=== PATIENT | female | born 1955 | race Caucasian/White ===

== ENCOUNTER 2018-02-13 11:25 | Inpatient (IN) | payer OTHER, SELFPAY ==
[~2018-02-13] VITALS: Ht 157.5 cm; Wt 61.8 kg
[2018-02-13 11:56] LABS: MEAN CORPUSCULAR HEMOGLOBIN 31.1 pg (27.0-34.8); MEAN CORPUSCULAR HGB CONC 34.5 g/dL (32.4-35.8); MEAN CORPUSCULAR VOLUME 90.2 fL (80-100); MEAN PLATELET VOLUME 8.7 fL (7.4-10.4); PLATELET COUNT 505 x10^3/uL (130-400); RED BLOOD COUNT 4.14 x10^6/uL (3.82-5.3); RED CELL DISTRIBUTION WIDTH 14.3 % (9.6-15.2)
[2018-02-13] MEDS ORDERED: LORazepam 2 MG/ML, 1ML ONE (11:56)
[2018-02-13] MEDS ORDERED: LORazepam 2 MG/ML, 1ML IVPush ONE (12:00)
[2018-02-13 12:08] LABS: ALBUMIN 3.5 g/dL (3.4-5.0); ANION GAP 14 mmol/L (5-15); CALCIUM 9.2 mg/dL (8.5-10.1); CHLORIDE 95 mmol/L (98-107)
[2018-02-13 12:12] LABS: D-DIMER 0.69 ug/mlFEU (0.00-0.52); INTERNATIONAL NORMALIZED RATIO 0.99 (0.93-1.1); PROTHROMBIN TIME 10.5 Seconds (9.6-11.5)
[2018-02-13 12:13] LABS: ALANINE AMINOTRANSFERASE 18 U/L (12-78); ALKALINE PHOSPHATASE 114 U/L (45-117); BILIRUBIN,TOTAL 0.7 mg/dL (0.2-1.0); CREATININE 0.98 mg/dL (0.55-1.02); TOTAL PROTEIN 8.1 g/dL (6.4-8.2); TROPONIN I < 0.015 ng/mL (0.000-0.045)
[2018-02-13 12:14] LABS: MD YES
[2018-02-13 12:15] LABS: <RBC MORPHOLOGY> NORMAL; BANDS%(MANUAL) 2 % (0-7); LYMPH#(MANUAL) 5.94 x10^3/uL (1-3.4); LYMPHS% (MANUAL) 30 % (22-44); MONOS% (MANUAL) 2 % (2-9); SEG#(MANUAL) 13.07 x10^3/uL (1.8-6.8); SEGS% (MANUAL) 66 % (42-75)
[2018-02-13 12:16] LABS: <PLATELET ESTIMATE> INCREASED; <PLT MORPHOLOGY> NORMAL PLT MORPH
[2018-02-13] MEDS ORDERED: POTASSIUM CHLORIDE 20 MEQ TAB.ER.PRT ONE (12:22)
[2018-02-13] MEDS ORDERED: NS + 40MEQ KCL 1,000 ML IV ONE (12:23)
[2018-02-13] MEDS ORDERED: POTASSIUM CHLORIDE 20 MEQ TAB.ER.PRT PO ONE ×2 (12:30→15:00)
[2018-02-13] MEDS: POTASSIUM CHLORIDE 40 MEQ in SODIUM CHLORIDE 0.9% 500 ML IV ONE ×2 (12:30→12:34)
[2018-02-13] MEDS ORDERED: DIPHENHYDRAMINE 50 MG/ML, 1ML ONE (12:56)
[2018-02-13] MEDS ORDERED: DIPHENHYDRAMINE 50 MG/ML, 1ML IVPush ONE (13:00)
[2018-02-13] MEDS ORDERED: OMNIPAQUE 350 MG/ML, 100ML BOTTLE ONE (13:26)
[2018-02-13] MEDS ORDERED: ASPI81TA45 PO (13:42)
[2018-02-13] MEDS ORDERED: SENN-88 PO (13:42)
[2018-02-13] MEDS ORDERED: ATOR40TA78 PO (13:42)
[2018-02-13] MEDS ORDERED: FURO40TA6 PO (13:42)
[2018-02-13] MEDS ORDERED: CARV6.252 PO (13:42)
[2018-02-13] MEDS ORDERED: LINA5TAB PO (13:42)
[2018-02-13] MEDS ORDERED: METF500T17 PO (13:42)
[2018-02-13] MEDS ORDERED: POTA90TA2 PO (13:42)
[2018-02-13] MEDS ORDERED: HYDR25TA6 PO (13:42)
[2018-02-13] MEDS ORDERED: LABETALOL 5MG/ML, 20ML IVPush PRN (14:00)
[2018-02-13] MEDS ORDERED: AZITHROMYCIN 500 MG in SODIUM CHLORIDE 0.9% 250 ML IV ONE (14:00)
[2018-02-13] MEDS ORDERED: CEFTRIAXONE PMX 1GM/50ML 50 ML IV ONE (14:00)
[2018-02-13] MEDS ORDERED: SODIUM CHLORIDE 0.9% 1,000 ML IV SCH (14:00)
[2018-02-13] MEDS ORDERED: ONDANSETRON ODT 4 MG PO PRN (14:00)
[2018-02-13] MEDS ORDERED: ONDANSETRON 2MG/ML, 2ML IVPush PRN (14:00)
[2018-02-13] MEDS ORDERED: POLYETHYLENE GLYCOL 17 GM PACKET PO PRN (14:00)
[2018-02-13 14:52] VITALS: BP_SYST 101; BP_SYST 85; BP_DIAS 52; BP_DIAS 53
[2018-02-13] MEDS ORDERED: NS + 20MEQ KCL 1,000 ML IV SCH (15:00)
[2018-02-13] MEDS: DOXYCYCLINE 100MG TABLET PO SCH ×2 (15:52→20:08)
[2018-02-13] MEDS: CEFTRIAXONE PMX 1GM/50ML 50 ML IV SCH (15:52)
[2018-02-13] MEDS: GUAIFENESIN 200 MG TABLET PO SCH ×2 (16:00→20:08)
[2018-02-13 17:40] LABS: ALBUMIN 3.1 g/dL (3.4-5.0); ANION GAP 8 mmol/L (5-15); CALCIUM 9.2 mg/dL (8.5-10.1); CHLORIDE 96 mmol/L (98-107); CREATININE 1.03 mg/dL (0.55-1.02)
[2018-02-13 18:42] VITALS: BP 101/67
[2018-02-13 19:43] LABS: ANION GAP 8 mmol/L (5-15); CALCIUM 8.7 mg/dL (8.5-10.1); CHLORIDE 100 mmol/L (98-107); CREATININE 1.33 mg/dL (0.55-1.02)
[2018-02-13] MEDS: ATORVASTATIN 80 MG TABLET PO SCH (20:08)
[2018-02-13] MEDS: CARVEDILOL 6.25 MG TABLET PO SCH (20:08)
[2018-02-14 01:52] VITALS: BP 101/66
[2018-02-14] MEDS: GUAIFENESIN 200 MG TABLET PO SCH ×4 (05:10→21:04)
[2018-02-14 05:40] LABS: BASOPHILS % (AUTO) 1 % (0-1); EOSINOPHILS # (AUTO) 0.12 x10^3/uL (0-0.4); EOSINOPHILS % (AUTO) 1 % (1-7); LYMPHOCYTES % (AUTO) 20 % (22-44); MD NO; MEAN CORPUSCULAR HEMOGLOBIN 30.6 pg (27.0-34.8); MEAN CORPUSCULAR HGB CONC 33.6 g/dL (32.4-35.8); MEAN CORPUSCULAR VOLUME 91.1 fL (80-100); MEAN PLATELET VOLUME 8.8 fL (7.4-10.4); MONOCYTES # (AUTO) 0.94 x10^3/uL (0.2-0.8); MONOCYTES % (AUTO) 6 % (2-9); NEUTROPHILS # (AUTO) 11.36 x10^3/uL (1.8-6.8); NEUTROPHILS % (AUTO) 73 % (42-75); PLATELET COUNT 456 x10^3/uL (130-400); RED CELL DISTRIBUTION WIDTH 14.5 % (9.6-15.2)
[2018-02-14 05:51] LABS: ALBUMIN 2.7 g/dL (3.4-5.0); CHLORIDE 104 mmol/L (98-107)
[2018-02-14 06:11] LABS: ALANINE AMINOTRANSFERASE 15 U/L (12-78); ALKALINE PHOSPHATASE 88 U/L (45-117); ANION GAP 10 mmol/L (5-15); BILIRUBIN,TOTAL 0.3 mg/dL (0.2-1.0); CALCIUM 8.2 mg/dL (8.5-10.1); CREATININE 0.92 mg/dL (0.55-1.02); TOTAL PROTEIN 6.7 g/dL (6.4-8.2)
[2018-02-14 07:39] LABS: TROPONIN I < 0.015 ng/mL (0.000-0.045)
[2018-02-14 08:33] VITALS: BP 103/67
[2018-02-14] MEDS ORDERED: POTASSIUM CHLORIDE 20 MEQ TAB.ER.PRT PO ONE ×2 (09:00→18:00)
[2018-02-14] MEDS: ASPIRIN 81 MG TABLET EC PO SCH (09:34)
[2018-02-14] MEDS: DOXYCYCLINE 100MG TABLET PO SCH ×2 (09:34→21:04)
[2018-02-14] MEDS: HYDROCHLOROTHIAZIDE 25 MG TABLET PO SCH (09:34)
[2018-02-14] MEDS: SENNA/DOCUSATE TABLET PO SCH (09:34)
[2018-02-14] MEDS: CARVEDILOL 6.25 MG TABLET PO SCH ×2 (09:34→21:05)
[2018-02-14 11:02] LABS: TROPONIN I < 0.015 ng/mL (0.000-0.045)
[2018-02-14] MEDS ORDERED: ENOXAPARIN 40 MG/0.4 ML SQ SCH (14:00)
[2018-02-14] MEDS: INSULIN LISPRO 100 UNITS/ML, PEN SQ-INSULIN SCH ×3 (14:04→21:00)
[2018-02-14 14:08] VITALS: BP 99/59
[2018-02-14] MEDS ORDERED: NS + 20MEQ KCL 1,000 ML IV ONE (15:00)
[2018-02-14] MEDS: CEFTRIAXONE PMX 1GM/50ML 50 ML IV SCH (15:35)
[2018-02-14 17:57] LABS: MICROSCOPIC NOT IND
[2018-02-14 17:58] LABS: CULTURE INDICATED? NO
[2018-02-14 19:46] VITALS: BP 121/74
[2018-02-14] MEDS: ATORVASTATIN 80 MG TABLET PO SCH (21:04)
[2018-02-15 01:40] VITALS: BP 93/52
[2018-02-15] MEDS: GUAIFENESIN 200 MG TABLET PO SCH ×2 (05:39→10:49)
[2018-02-15 06:29] LABS: MEAN CORPUSCULAR HEMOGLOBIN 30.6 pg (27.0-34.8); MEAN CORPUSCULAR HGB CONC 33.9 g/dL (32.4-35.8); MEAN CORPUSCULAR VOLUME 90.5 fL (80-100); MEAN PLATELET VOLUME 8.8 fL (7.4-10.4); PLATELET COUNT 461 x10^3/uL (130-400); RED BLOOD COUNT 3.72 x10^6/uL (3.82-5.3); RED CELL DISTRIBUTION WIDTH 15.1 % (9.6-15.2)
[2018-02-15 06:39] LABS: ALBUMIN 2.8 g/dL (3.4-5.0); ANION GAP 7 mmol/L (5-15); CALCIUM 8.6 mg/dL (8.5-10.1); CHLORIDE 108 mmol/L (98-107); CREATININE 0.92 mg/dL (0.55-1.02)
[2018-02-15 07:10] LABS: MD YES
[2018-02-15 07:40] LABS: LYMPH#(MANUAL) 5.27 x10^3/uL (1-3.4); LYMPHS% (MANUAL) 45 % (22-44); MONOS#(MANUAL) 1.29 x10^3/uL (0.3-2.7); MONOS% (MANUAL) 11 % (2-9); SEG#(MANUAL) 5.15 x10^3/uL (1.8-6.8); SEGS% (MANUAL) 44 % (42-75)
[2018-02-15 07:41] LABS: <PLATELET ESTIMATE> INCREASED; <PLT MORPHOLOGY> NORMAL PLT MORPH; <RBC MORPHOLOGY> NORMAL
[2018-02-15 07:44] VITALS: BP 106/52
[2018-02-15] MEDS: SENNA/DOCUSATE TABLET PO SCH (08:13)
[2018-02-15] MEDS: ASPIRIN 81 MG TABLET EC PO SCH (08:13)
[2018-02-15] MEDS: DOXYCYCLINE 100MG TABLET PO SCH (08:13)
[2018-02-15] MEDS: HYDROCHLOROTHIAZIDE 25 MG TABLET PO SCH (08:13)
[2018-02-15] MEDS: CARVEDILOL 6.25 MG TABLET PO SCH (08:13)
[2018-02-15 08:45] LABS: HEMOGLOBIN A1C 7.9 % (4.2-6.3)
[2018-02-15] MEDS: INSULIN LISPRO 100 UNITS/ML, PEN SQ-INSULIN SCH ×2 (09:00→12:37)
[2018-02-15] MEDS ORDERED: CEFD300C37 PO ×2 (09:13)
[2018-02-15] MEDS ORDERED: DOXY100T PO ×2 (09:13)
[2018-02-15] MEDS ORDERED: CEFTRIAXONE PMX 1GM/50ML 50 ML IV SCH (09:30)
[2018-02-15] MEDS ORDERED: CEFDINIR 300 MG CAPSULE PO ONE (10:30)
== END 2018-02-15 11:54 | disposition home or self-care (01) | DRG 871 ==
LOC: ED 12:49 → EDIP 13:26 → 5SO 14:26 → DCLOUNGE 02-15 11:45
PROVIDERS: ADMIT Hospitalist; ATTEND Hospitalist
DX: A41.9 Sepsis, unspecified organism (principal); J18.9 Pneumonia, unspecified organism; E87.1 Hypo-osmolality and hyponatremia; Z79.82 Long term (current) use of aspirin; K21.9 Gastro-esophageal reflux disease without esophagitis; I10 Essential (primary) hypertension; I25.10 Atherosclerotic heart disease of native coronary artery without angina pectoris; F17.210 Nicotine dependence, cigarettes, uncomplicated; Z85.43 Personal history of malignant neoplasm of ovary; D44.6 Neoplasm of uncertain behavior of carotid body; E11.9 Type 2 diabetes mellitus without complications; E78.00 Pure hypercholesterolemia, unspecified; E78.5 Hyperlipidemia, unspecified; E87.6 Hypokalemia; I25.2 Old myocardial infarction; I35.8 Other nonrheumatic aortic valve disorders; Z66 Do not resuscitate; Z80.0 Family history of malignant neoplasm of digestive organs; Z80.3 Family history of malignant neoplasm of breast; Z80.6 Family history of leukemia; Z82.49 Family history of ischemic heart disease and other diseases of the circulatory system; Z83.3 Family history of diabetes mellitus; Z86.73 Personal history of transient ischemic attack (TIA), and cerebral infarction without residual deficits; Z90.81 Acquired absence of spleen; Z90.711 Acquired absence of uterus with remaining cervical stump
CPT/HCPCS: 36415; 71045; 71275; 80048; 80053; 81003; 82040; 82962; 83036; 83605; 83735; 84100; 84145; 84439; 84443; 84484; 85025; 85379; 85610; 85730; 87040; 87070; 87205; 93005; 93306; 96374; 96375; 99291; G0378; J0696; J1650; J3480; Q9967; J1200; J1815; J2060; J7040

== ENCOUNTER 2018-02-18 16:42 | Observation (INO) | payer OTHER ==
[~2018-02-18] VITALS: Ht 160 cm; Wt 62.9 kg
[~2018-02-18 16:42] MED LIST: ASPI81TA45 PO; ATOR40TA78 PO; CARV6.252 PO; CEFD300C37 PO; DOXY100T PO; FURO40TA6 PO; HYDR25TA6 PO; LINA5TAB PO; METF500T17 PO; POTA90TA2 PO; SENN-88 PO
--- NOTE | 2018-02-18 17:05 | NUR ---
PT PRESENTS TO ED WITH SIGNIFICANT CP AND ASSOCIATED BACK PAIN STARTING THIS MORNING AT 0000. RELIEF WITH DEEP BREATHING. CONNECTED TO ALL MONITORS. CURRENTLY TACHYCARDIC. KAVON TO BEDSIDE. AWAITING ORDERS.
[2018-02-18] MEDS ORDERED: METOPROLOL 1 MG/ML, 5ML ONE (17:12)
[2018-02-18] MEDS ORDERED: MORPHINE SULFATE 4 MG/ML, 1ML ONE (17:12)
[2018-02-18] MEDS ORDERED: ONDANSETRON 2MG/ML, 2ML ONE (17:12)
[2018-02-18] MEDS ORDERED: LORazepam 2 MG/ML, 1ML ONE (17:12)
[2018-02-18] MEDS ORDERED: METOPROLOL 1 MG/ML, 5ML IVPush ONE (17:30)
[2018-02-18] MEDS ORDERED: ONDANSETRON 2MG/ML, 2ML IVPush ONE (17:30)
[2018-02-18] MEDS ORDERED: MORPHINE SULFATE 4 MG/ML, 1ML IVPush PRN (17:30)
[2018-02-18] MEDS ORDERED: LORazepam 2 MG/ML, 1ML IVPush ONE (17:30)
--- NOTE | 2018-02-18 17:43 | NUR ---
IV PLACED, LABS DRAWN AND PT MEDICATED PER APR. PT REQUESTING HALF DOSE OF MORPHINE, INFORMED. AFTER MEDS HR DECREASED TO 108, ORDER TO HOLD LOPRESSOR AT THIS TIME. FAMILY AT BEDSIDE, CALL LIGHT WITHIN REACH. AWAITING TESTING AND RESULTS AT THIS TIME.
[2018-02-18 17:58] LABS: INTERNATIONAL NORMALIZED RATIO 0.97 (0.93-1.1); PROTHROMBIN TIME 10.3 Seconds (9.6-11.5)
[2018-02-18 18:02] LABS: ALBUMIN 3.9 g/dL (3.4-5.0); ANION GAP 15 mmol/L (5-15); CALCIUM 9.3 mg/dL (8.5-10.1); CHLORIDE 97 mmol/L (98-107)
--- NOTE | 2018-02-18 18:04 | NUR ---
PT RESTING IN BED WITH FAMILY AT BEDSIDE. PT REPORTING PAIN HAS DECREASED FROM 7/10 TO 3/10. HR AND BP HAVE DECREASED WELL. AWAITING TEST RESULTS AND DISPO AT THIS TIME.
--- NOTE | 2018-02-18 18:07 | NUR ---
PT RESTING IN BED WITH FAMILY AT BEDSIDE. PT STATES PAIN IS IMPROVING. HR IS DECREASING. ALL OTHER VSS.
[2018-02-18 18:09] LABS: ALANINE AMINOTRANSFERASE 20 U/L (12-78); ALKALINE PHOSPHATASE 114 U/L (45-117); BILIRUBIN,TOTAL 0.8 mg/dL (0.2-1.0); CREATININE 1.39 mg/dL (0.55-1.02); TOTAL PROTEIN 9.4 g/dL (6.4-8.2); TROPONIN I < 0.015 ng/mL (0.000-0.045)
[2018-02-18 18:24] LABS: MEAN CORPUSCULAR HEMOGLOBIN 30.2 pg (27.0-34.8); MEAN CORPUSCULAR HGB CONC 33.6 g/dL (32.4-35.8); MEAN CORPUSCULAR VOLUME 90.1 fL (80-100); MEAN PLATELET VOLUME 8.6 fL (7.4-10.4); PLATELET COUNT 679 x10^3/uL (130-400); RED BLOOD COUNT 4.67 x10^6/uL (3.82-5.3); RED CELL DISTRIBUTION WIDTH 14.4 % (9.6-15.2)
[2018-02-18 18:25] LABS: BASOPHILS # (AUTO) 0.12 x10^3/uL (0-0.1); BASOPHILS % (AUTO) 1 % (0-1); EOSINOPHILS # (AUTO) 0.26 x10^3/uL (0-0.4); EOSINOPHILS % (AUTO) 2 % (1-7); LYMPHOCYTES % (AUTO) 42 % (22-44); MD SCAN; MONOCYTES # (AUTO) 1.25 x10^3/uL (0.2-0.8); MONOCYTES % (AUTO) 7 % (2-9); NEUTROPHILS % (AUTO) 48 % (42-75)
--- NOTE | 2018-02-18 18:45 | NUR ---
MD AT BEDSIDE TO UPDATE PT AND FAMILY ON POC
[2018-02-18] MEDS ORDERED: CEFDINIR 300 MG CAPSULE PO SCH (19:00)
[2018-02-18] MEDS ORDERED: PHARMACOKINETIC CONSULTATION MC ONE (19:00)
[2018-02-18] MEDS ORDERED: DOXYCYCLINE 100MG TABLET PO ONE (19:00)
[2018-02-18] MEDS ORDERED: VANCOMYCIN PMX 1GM/200ML 200 ML IV ONE (19:00)
[2018-02-18] MEDS ORDERED: PIPERACILLIN/TAZO/PMX 4.5GM 100 ML IV ONE (19:00)
[2018-02-18] MEDS ORDERED: VANCOMYCIN PER PHARMACY MC PRN (19:00)
[2018-02-18] MEDS ORDERED: POTASSIUM CHLORIDE 10% 40 MEQ/30 ML UDC PO ONE (19:00)
[2018-02-18] MEDS ORDERED: CEFDINIR 300 MG CAPSULE ONE (19:06)
[2018-02-18] MEDS ORDERED: POTASSIUM CHLORIDE 20 MEQ PACKET ONE (19:08)
[2018-02-18] MEDS ORDERED: DOXYCYCLINE 100MG TABLET ONE (19:08)
--- NOTE | 2018-02-18 19:15 | NUR ---
MEDICATED PER APR. ADMIT MD AT BEDSIDE.
[2018-02-18] MEDS ORDERED: NS + 20MEQ KCL 1,000 ML IV SCH (19:32)
--- NOTE | 2018-02-18 19:38 | NUR ---
reprt to maggie in 405-1. ready for transport.
[2018-02-18] MEDS ORDERED: GLUCAGON 1 MG IM PRN (20:00)
[2018-02-18] MEDS ORDERED: ACETAMINOPHEN 325 MG TABLET PO PRN (20:00)
[2018-02-18] MEDS ORDERED: ONDANSETRON 2MG/ML, 2ML IVPush PRN (20:00)
[2018-02-18] MEDS ORDERED: DEXTROSE 50%, 50ML SYRINGE IVPush PRN (20:00)
[2018-02-18] MEDS ORDERED: MAGNESIUM SULFATE PMX 2GM/50ML 50 ML IV ONE (20:00)
[2018-02-18] MEDS ORDERED: ONDANSETRON ODT 4 MG PO PRN (20:00)
[2018-02-18] MEDS ORDERED: DEXTROSE 4 GM TAB.CHEW PO PRN (20:00)
[2018-02-18] MEDS ORDERED: POLYETHYLENE GLYCOL 17 GM PACKET PO PRN (20:00)
[2018-02-18] MEDS ORDERED: morphine SULFATE 10 MG/ML, 1ML IVPush PRN (20:00)
[2018-02-18 21:16] VITALS: BP 178/88
[2018-02-18 21:30] VITALS: BP 106/67
[2018-02-18] MEDS: DOXYCYCLINE 100MG TABLET PO SCH (21:32)
[2018-02-18] MEDS: SODIUM CHLORIDE FLUSH 10ML SYR IVF SCH (21:32)
[2018-02-18] MEDS: CARVEDILOL 6.25 MG TABLET PO SCH (21:32)
[2018-02-18] MEDS: ATORVASTATIN 40 MG TABLET PO SCH (21:32)
[2018-02-18] MEDS: CEFDINIR 300 MG CAPSULE PO SCH (21:32)
[2018-02-18] MEDS: POTASSIUM CHLORIDE 20 MEQ TAB.ER.PRT PO SCH (21:36)
[2018-02-18 22:46] VITALS: BP 193/71
[2018-02-19] MEDS ORDERED: NITR9CAP3 SL (01:06)
[2018-02-19] MEDS ORDERED: FURO20TA3 PO (01:06)
[2018-02-19 01:08] VITALS: BP 95/60
[2018-02-19 01:12] VITALS: BP 120/78
[2018-02-19] MEDS: SODIUM CHLORIDE 0.9% 1,000 ML IV SCH ×2 (06:27→20:02)
[2018-02-19 06:32] LABS: MEAN CORPUSCULAR HEMOGLOBIN 30.2 pg (27.0-34.8); MEAN CORPUSCULAR HGB CONC 33.4 g/dL (32.4-35.8); MEAN CORPUSCULAR VOLUME 90.3 fL (80-100); MEAN PLATELET VOLUME 8.3 fL (7.4-10.4); PLATELET COUNT 609 x10^3/uL (130-400); RED BLOOD COUNT 4.02 x10^6/uL (3.82-5.3); RED CELL DISTRIBUTION WIDTH 14.9 % (9.6-15.2)
[2018-02-19 06:35] LABS: ANION GAP 9 mmol/L (5-15); CHLORIDE 102 mmol/L (98-107)
[2018-02-19 06:38] LABS: CALCIUM 8.9 mg/dL (8.5-10.1); CREATININE 1.08 mg/dL (0.55-1.02)
[2018-02-19 07:05] VITALS: BP 101/64
[2018-02-19 07:39] LABS: BASOPHILS # (AUTO) 0.11 x10^3/uL (0-0.1); BASOPHILS % (AUTO) 1 % (0-1); EOSINOPHILS # (AUTO) 0.19 x10^3/uL (0-0.4); EOSINOPHILS % (AUTO) 2 % (1-7); LYMPHOCYTES # (AUTO) 5.62 x10^3/uL (1-3.4); LYMPHOCYTES % (AUTO) 45 % (22-44); MD SCAN; MONOCYTES % (AUTO) 9 % (2-9); NEUTROPHILS # (AUTO) 5.43 x10^3/uL (1.8-6.8); NEUTROPHILS % (AUTO) 44 % (42-75)
[2018-02-19] MEDS: POTASSIUM CHLORIDE 20 MEQ TAB.ER.PRT PO SCH ×2 (08:00→17:00)
[2018-02-19] MEDS: CARVEDILOL 6.25 MG TABLET PO SCH ×2 (08:36→20:01)
[2018-02-19] MEDS: LINAGLIPTIN 5 MG TAB PO SCH (08:36)
[2018-02-19] MEDS: SODIUM CHLORIDE FLUSH 10ML SYR IVF SCH ×2 (08:36→20:02)
[2018-02-19] MEDS: ASPIRIN 81 MG TABLET EC PO SCH (08:36)
[2018-02-19] MEDS: SENNOSIDES 8.6 MG TABLET PO SCH (08:37)
[2018-02-19] MEDS: CEFDINIR 300 MG CAPSULE PO SCH ×2 (08:37→20:01)
[2018-02-19] MEDS: DOXYCYCLINE 100MG TABLET PO SCH ×2 (08:37→20:01)
[2018-02-19] MEDS ORDERED: POTASSIUM GLUCONATE 90 MG PO SCH (09:00)
[2018-02-19 10:41] VITALS: BP 125/77
[2018-02-19 12:00] VITALS: BP 96/54
[2018-02-19] MEDS ORDERED: PROMETHAZINE 25 MG/ML, 1ML ONE (12:53)
[2018-02-19] MEDS ORDERED: PROMETHAZINE 25 MG/ML, 1ML IM PRN (13:00)
[2018-02-19] MEDS: METOCLOPRAMIDE 5 MG/ML, 2ML IVPush SCH ×2 (15:00→20:02)
[2018-02-19 19:59] VITALS: BP 112/66
[2018-02-19] MEDS: ATORVASTATIN 40 MG TABLET PO SCH (20:01)
[2018-02-20 03:23] VITALS: BP 108/61
[2018-02-20] MEDS: METOCLOPRAMIDE 5 MG/ML, 2ML IVPush SCH ×2 (03:29→09:12)
[2018-02-20 03:31] VITALS: BP 96/59
[2018-02-20 03:32] VITALS: BP 121/72
[2018-02-20 06:13] LABS: ALBUMIN 2.6 g/dL (3.4-5.0); ANION GAP 7 mmol/L (5-15); CALCIUM 8.4 mg/dL (8.5-10.1); CHLORIDE 111 mmol/L (98-107); CREATININE 0.84 mg/dL (0.55-1.02); MEAN CORPUSCULAR HEMOGLOBIN 30.6 pg (27.0-34.8); MEAN CORPUSCULAR HGB CONC 33.3 g/dL (32.4-35.8); MEAN PLATELET VOLUME 8.4 fL (7.4-10.4); PLATELET COUNT 553 x10^3/uL (130-400); RED CELL DISTRIBUTION WIDTH 14.4 % (9.6-15.2)
[2018-02-20 06:44] LABS: BASOPHILS # (AUTO) 0.08 x10^3/uL (0-0.1); BASOPHILS % (AUTO) 1 % (0-1); EOSINOPHILS # (AUTO) 0.26 x10^3/uL (0-0.4); EOSINOPHILS % (AUTO) 2 % (1-7); LYMPHOCYTES # (AUTO) 5.21 x10^3/uL (1-3.4); LYMPHOCYTES % (AUTO) 45 % (22-44); MD SCAN; MONOCYTES # (AUTO) 1.15 x10^3/uL (0.2-0.8); MONOCYTES % (AUTO) 10 % (2-9); NEUTROPHILS # (AUTO) 4.79 x10^3/uL (1.8-6.8); NEUTROPHILS % (AUTO) 42 % (42-75)
[2018-02-20 08:47] VITALS: BP_SYST 154; BP_SYST 99; BP_DIAS 56; BP_DIAS 99
[2018-02-20] MEDS: SODIUM CHLORIDE FLUSH 10ML SYR IVF SCH (09:11)
[2018-02-20] MEDS: DOXYCYCLINE 100MG TABLET PO SCH (09:12)
[2018-02-20] MEDS: CARVEDILOL 6.25 MG TABLET PO SCH (09:12)
[2018-02-20] MEDS: LINAGLIPTIN 5 MG TAB PO SCH (09:12)
[2018-02-20] MEDS: CEFDINIR 300 MG CAPSULE PO SCH (09:12)
[2018-02-20] MEDS: ASPIRIN 81 MG TABLET EC PO SCH (09:12)
[2018-02-20] MEDS: SODIUM CHLORIDE 0.9% 1,000 ML IV SCH (09:12)
[2018-02-20] MEDS: SENNOSIDES 8.6 MG TABLET PO SCH (09:13)
[2018-02-20 14:52] VITALS: BP 108/67
== END 2018-02-20 16:56 | disposition home or self-care (01) ==
LOC: ED 18:21 → SUATTDRO 19:03 → INTOOBSV 19:36 → EDIP 19:36 → 4WST 19:48 → DCLOUNGE 02-20 16:45
PROVIDERS: ADMIT Hospitalist; ATTEND Hospitalist
DX: R11.2 Nausea with vomiting, unspecified (principal); E87.6 Hypokalemia; N17.9 Acute kidney failure, unspecified; E11.9 Type 2 diabetes mellitus without complications; I10 Essential (primary) hypertension; E78.00 Pure hypercholesterolemia, unspecified; E78.5 Hyperlipidemia, unspecified; I25.2 Old myocardial infarction; K21.9 Gastro-esophageal reflux disease without esophagitis; Z90.81 Acquired absence of spleen
CPT/HCPCS: 36415; 71045; 80048; 80053; 82040; 83690; 83735; 84100; 84484; 85025; 85610; 93005; 96361; 96365; 96366; 96375; 96376; 97161; 99284; G0378; G8978; G8979; G8980; J2060; J2270; J2405; J2550; J2765; J3475; J7030; Q0162

== ENCOUNTER 2018-02-26 17:47 | Inpatient (IN) | payer MEDICARE, OTHER ==
[~2018-02-26] VITALS: Ht 160 cm; Wt 65.8 kg
[~2018-02-26 17:47] MED LIST changes: +FURO20TA3 PO; +NITR9CAP3 SL
[2018-02-26] MEDS ORDERED: ONDANSETRON 2MG/ML, 2ML IVPush ONE (18:30)
[2018-02-26] MEDS ORDERED: SODIUM CHLORIDE FLUSH 10ML SYR IVF ONE (18:30)
[2018-02-26] MEDS ORDERED: MORPHINE SULFATE 4 MG/ML, 1ML IVPush PRN (18:30)
[2018-02-26 18:41] LABS: MEAN CORPUSCULAR HEMOGLOBIN 30.6 pg (27.0-34.8); MEAN PLATELET VOLUME 8.8 fL (7.4-10.4); PLATELET COUNT 642 x10^3/uL (130-400); RED BLOOD COUNT 4.54 x10^6/uL (3.82-5.3); RED CELL DISTRIBUTION WIDTH 14.1 % (9.6-15.2)
[2018-02-26 18:46] LABS: ANION GAP 16 mmol/L (5-15); CALCIUM 9.9 mg/dL (8.5-10.1); CHLORIDE 94 mmol/L (98-107)
[2018-02-26 18:47] LABS: CREATININE 2.99 mg/dL (0.55-1.02)
[2018-02-26 18:56] LABS: BASOPHILS # (AUTO) 0.22 x10^3/uL (0-0.1); BASOPHILS % (AUTO) 1 % (0-1); EOSINOPHILS # (AUTO) 0.06 x10^3/uL (0-0.4); EOSINOPHILS % (AUTO) 0 % (1-7); LYMPHOCYTES % (AUTO) 30 % (22-44); MD SCAN; MONOCYTES # (AUTO) 1.31 x10^3/uL (0.2-0.8); MONOCYTES % (AUTO) 7 % (2-9); NEUTROPHILS # (AUTO) 11.13 x10^3/uL (1.8-6.8); NEUTROPHILS % (AUTO) 61 % (42-75)
--- NOTE | 2018-02-26 19:30 | NUR ---
[facility]
--- NOTE | 2018-02-26 19:40 | NUR ---
PROVIDER TO BEDSIDE FOR PT EVAL. SUPERVISOR NUTRITIONAL YEAST AT BEDSIDE FOR EKG.
[2018-02-26] MEDS ORDERED: ONDANSETRON 2MG/ML, 2ML ONE (19:47)
[2018-02-26] MEDS ORDERED: MORPHINE SULFATE 4 MG/ML, 1ML ONE (19:49)
--- NOTE | 2018-02-26 19:50 | NUR ---
IV PLACED. PT RECIEVED ZOFRAN AND MORPHINE PER ORDERS, SEE EMAR. PT PLACED ON CARIDAC AND VS MONITORING. VSS. PT REPORTS 8/10 PAIN TO LOWER BACK. PT REPORTS L SHOULDER PAIN WITH BREATHING. PT DENIES URINARY SX OR DIARRHEA. PT REPORTS N/V STARTING THIS AM. PT UNABLE TO KEEP DAILY MEDS DOWN. PT A/OX4, BREATHING E/U. PT CONVRSING WELL, FAMILY AT BEDSIDE. AWAITING MD ALFONSO. CALL LIGHT IN REACH.
[2018-02-26] MEDS ORDERED: SODIUM CHLORIDE 0.9% 1,000ML IVBOLUS ONE (20:00)
[2018-02-26] MEDS ORDERED: VARI50KI IM (20:14)
[2018-02-26 20:20] LABS: ALBUMIN 3.6 g/dL (3.4-5.0); BILIRUBIN, DIRECT 0.1 mg/dL (0.1-0.2)
[2018-02-26 20:22] LABS: BILIRUBIN,INDIRECT 0.4 mg/dL (0.0-2.0); BILIRUBIN,TOTAL 0.5 mg/dL (0.2-1.0); TOTAL PROTEIN 7.2 g/dL (6.4-8.2)
--- NOTE | 2018-02-26 20:29 | NUR ---
NS INFUSING WITHOUT DIFFICULTY. PT APPEARS MORE COMFORTABLE, NO EMESIS NOTED AT THIS TIME. WILL MONITOR PT, CALL LIGHT IN REACH. Addendum: 02/26/18 at 2028 by RWAGNERCourtney MD TO BEDSIDE FOR PT EVAL COMPLETE, PT TO BE ADMITTED. MED LIST COMPLETED.
--- NOTE | 2018-02-26 20:49 | NUR ---
PT BEEN HAVING N/V ALL DAY, STATES SHE COULD NOT URINATE, WILL HAVE PT ATTEMPT TO COLLECT URINE WHEN SOME NS HAS INFUSED. NS CONTINUES TO INFUSE WITHOUT DIFFICULTY.
[2018-02-26] MEDS ORDERED: PROMETHAZINE 25 MG/ML, 1ML ONE (20:53)
--- NOTE | 2018-02-26 20:55 | NUR ---
PT REPORTS BACK PAIN AND SHOULDER PAIN HAVE IMPROVED, PT APPEARS MORE CALM AND BREATHING E/U. PT REPORTS NAUSEA HAS NOT IMRPOVED. PROVIDER NOTIFIED. PT TO HAVE PHENERGAN IM. VSS.
--- NOTE | 2018-02-26 21:26 | NUR ---
PT UP TO BSC FOR URINE SMAPLE COLLECTION, PT UNABLE TO AMBULATED DISTANCE WITH STEADY GAIT. PT UP TO BSC WITH STEADY GAIT WITH STAND BY ASSIST BY THIS RN. URINE SENT TO LAB. PT RECIEVED PHENERGAN PER ORDERS, SEE EMAR. PT TOLERATED WELL. PT CONTINUES ON CARDIAC AND VS MONITORING, VSS. PT CONTINUES TO REPORT IMPROVED PAIN, WILL MONITOR FOR PHENERGAN EFFECTIVENESS. NS CONTINUES TO INFUSE WITHOUT DIFFICULTY, APPROX 500 HAS INFUSED SO FAR. PT FAMILY CONTINUES AT BEDSIDE. WILL CONTINUE TO MONITOR. PT AWAITING BED ASSIGNMENT.
[2018-02-26] MEDS ORDERED: PROMETHAZINE 25 MG/ML, 1ML IM ONE (21:30)
[2018-02-26 21:37] LABS: MICROSCOPIC INDICATED
--- NOTE | 2018-02-26 21:38 | NUR ---
URINE COLLECTED CLEAN CATCH, PROVIDER HILARIA NOTIFIED. PER PROVIDER CLEAN CATCH OK, STRAIGHT CATH NOT NEEDED.
[2018-02-26 21:45] LABS: CULTURE INDICATED? NO
[2018-02-26] MEDS ORDERED: CEFTRIAXONE PMX 1GM/50ML 50 ML IV ONE (22:00)
[2018-02-26] MEDS ORDERED: METRONIDAZOLE PMX 500MG/100ML 100 ML IV ONE (22:00)
[2018-02-26] MEDS ORDERED: CEFTRIAXONE PMX 1GM/50ML 50 ML ONE (22:00)
--- NOTE | 2018-02-26 22:08 | NUR ---
PT REPORTS IMPROVED NAUSEA, PT CALM AND APPEARS COMFORTABLE IN BED, NO S/SX OF DISCOMFORT OR DISTRESS. VSS. PT RECIEVED ROCEPHIN PER ORDERS, SEE EMAR, BC DRAWN PRIOR TO ABX. NS CONTINUES TO INFUSE WITHOUT DIFFICULTY. CALL LIGHT IN REACH.
--- NOTE | 2018-02-26 22:32 | NUR ---
NAUSEA CONTINUES TO BE IMPROVED, NO OTHER CHANGES TO PT. PT CONTINUES TO WAIT FOR ROOM ASSIGNMENT. WILL CONTINUE TO MONITOR.
[2018-02-26] MEDS ORDERED: METRONIDAZOLE PMX 500MG/100ML 100 ML ONE (22:41)
--- NOTE | 2018-02-26 22:51 | NUR ---
RECEPHIN COMPLETED, FLAGYL INFUSING PER ORDERS, SEE EMAR. VSS. PT RESTING, NO CHANGES, AWAITING ROOM. CALL LIGHT IN REACH.
[2018-02-26] MEDS ORDERED: POTASSIUM CHLORIDE 10% 40 MEQ/30 ML UDC PO ONE (23:00)
[2018-02-26] MEDS ORDERED: POTASSIUM CHLORIDE 20 MEQ PACKET ONE (23:01)
--- NOTE | 2018-02-26 23:06 | NUR ---
POTASSIUM NOT IN OMNICELL IN ED, REQUEST SENT TO PHARMACY.
--- NOTE | 2018-02-26 23:29 | NUR ---
REPORT TO BAUTISTA ROMEO. PT TO ROOM.
--- NOTE | 2018-02-26 23:37 | NUR ---
1L NS INFUSED, PT HAS 700MLS REMAINING TO INFUSE, NS INFUSING WITHOUT DIFFICULTY. ABX CONTINUE TO INFUSING WITHOUT DIFFICULTY. PT READY TO GO TO ROOM.
--- NOTE | 2018-02-26 23:42 | NUR ---
PT RECIEVED POTASSIUM PER ORDERS, SEE EMAR. LEASING SPECIALIST TO BEDSIDE TO TRANSPORT PT.
[2018-02-27] VITALS (9 sets, daily range): BP systolic 84–118; BP diastolic 42–62
[2018-02-27] MEDS ORDERED: POLYETHYLENE GLYCOL 17 GM PACKET PO PRN
[2018-02-27] MEDS ORDERED: ONDANSETRON 2MG/ML, 2ML IVPush PRN
[2018-02-27] MEDS ORDERED: BISACODYL 10 MG SUPP PR PRN
[2018-02-27] MEDS: NICOTINE 7 MG/24 HR PATCH.TD24 TD SCH
[2018-02-27] MEDS ORDERED: morphine SULFATE 10 MG/ML, 1ML IVPush PRN
[2018-02-27] MEDS ORDERED: hydrALAzine 20 MG/ML, 1ML IVPush PRN
[2018-02-27] MEDS ORDERED: ACETAMINOPHEN 325 MG TABLET PO PRN
[2018-02-27 00:10] LABS: HCT (SEDRATE) 40.9 % (34.6-47.8)
[2018-02-27 00:25] LABS: HIGH-SENSITIVITY CRP 0.4 mg/dL (0.02-0.30)
[2018-02-27 00:52] LABS: HEMOGLOBIN A1C 7.9 % (4.2-6.3)
[2018-02-27] MEDS: NS + 20MEQ KCL 1,000 ML IV SCH ×3 (00:57→20:34)
[2018-02-27] MEDS: HEPARIN 5,000 UNITS/ML, 1ML SQ SCH ×3 (00:58→16:11)
[2018-02-27] MEDS: CARVEDILOL 6.25 MG TABLET PO SCH ×3 (00:59→20:22)
[2018-02-27 05:04] LABS: MEAN CORPUSCULAR HEMOGLOBIN 30.9 pg (27.0-34.8); MEAN CORPUSCULAR HGB CONC 34.1 g/dL (32.4-35.8); MEAN CORPUSCULAR VOLUME 90.7 fL (80-100); MEAN PLATELET VOLUME 8.8 fL (7.4-10.4); PLATELET COUNT 501 x10^3/uL (130-400); RED BLOOD COUNT 3.36 x10^6/uL (3.82-5.3); RED CELL DISTRIBUTION WIDTH 14.7 % (9.6-15.2)
[2018-02-27 05:10] LABS: ALANINE AMINOTRANSFERASE 15 U/L (12-78); ALBUMIN 2.8 g/dL (3.4-5.0); ANION GAP 6 mmol/L (5-15); CALCIUM 7.7 mg/dL (8.5-10.1); CHLORIDE 105 mmol/L (98-107); CREATININE 2.23 mg/dL (0.55-1.02)
[2018-02-27 05:12] LABS: ALKALINE PHOSPHATASE 63 U/L (45-117); BILIRUBIN,TOTAL 0.4 mg/dL (0.2-1.0)
[2018-02-27 05:42] LABS: BASOPHILS % (AUTO) 1 % (0-1); EOSINOPHILS % (AUTO) 2 % (1-7); LYMPHOCYTES # (AUTO) 5.42 x10^3/uL (1-3.4); LYMPHOCYTES % (AUTO) 38 % (22-44); MD SCAN; MONOCYTES # (AUTO) 1.34 x10^3/uL (0.2-0.8); MONOCYTES % (AUTO) 9 % (2-9); NEUTROPHILS # (AUTO) 7.24 x10^3/uL (1.8-6.8); NEUTROPHILS % (AUTO) 50 % (42-75)
[2018-02-27] MEDS: INSULIN LISPRO 100 UNITS/ML, PEN SQ-INSULIN SCH ×5 (07:00→20:23)
[2018-02-27] MEDS ORDERED: SODIUM CHLORIDE 0.9% 1,000ML IVBOLUS ONE ×2 (07:30→09:30)
[2018-02-27] MEDS: SENNA/DOCUSATE TABLET PO SCH (09:00)
[2018-02-27] MEDS: ASPIRIN 81 MG TABLET EC PO SCH (09:00)
[2018-02-27] MEDS ORDERED: POTASSIUM CHLORIDE 20 MEQ TAB.ER.PRT PO ONE (10:00)
[2018-02-28] VITALS (7 sets, daily range): BP systolic 83–116; BP diastolic 45–64
[2018-02-28] MEDS: NICOTINE 7 MG/24 HR PATCH.TD24 TD SCH
[2018-02-28] MEDS: HEPARIN 5,000 UNITS/ML, 1ML SQ SCH ×3 (00:24→16:59)
[2018-02-28] MEDS ORDERED: SODIUM CHLORIDE 0.9%, 250ML IVBOLUS ONE (01:00)
[2018-02-28] MEDS: NS + 20MEQ KCL 1,000 ML IV SCH (04:41)
[2018-02-28] MEDS ORDERED: SODIUM CHLORIDE 0.9% 1,000ML IVBOLUS ONE (05:30)
[2018-02-28 05:32] LABS: CHLORIDE 114 mmol/L (98-107)
[2018-02-28 05:39] LABS: ALANINE AMINOTRANSFERASE 14 U/L (12-78); ALBUMIN 2.4 g/dL (3.4-5.0); ALKALINE PHOSPHATASE 58 U/L (45-117); ANION GAP 2 mmol/L (5-15); BILIRUBIN,TOTAL 0.3 mg/dL (0.2-1.0); CALCIUM 7.5 mg/dL (8.5-10.1); CREATININE 1.09 mg/dL (0.55-1.02); TOTAL PROTEIN 5.4 g/dL (6.4-8.2)
[2018-02-28] MEDS: INSULIN LISPRO 100 UNITS/ML, PEN SQ-INSULIN SCH ×4 (07:00→21:00)
[2018-02-28 07:56] LABS: MEAN CORPUSCULAR HEMOGLOBIN 30.1 pg (27.0-34.8); MEAN CORPUSCULAR HGB CONC 32.8 g/dL (32.4-35.8); MEAN CORPUSCULAR VOLUME 91.9 fL (80-100); MEAN PLATELET VOLUME 8.7 fL (7.4-10.4); PLATELET COUNT 455 x10^3/uL (130-400); RED BLOOD COUNT 3.21 x10^6/uL (3.82-5.3); RED CELL DISTRIBUTION WIDTH 14.9 % (9.6-15.2)
[2018-02-28 08:06] LABS: ANION GAP 8 mmol/L (5-15); CALCIUM 7.3 mg/dL (8.5-10.1); CHLORIDE 115 mmol/L (98-107); CREATININE 1.02 mg/dL (0.55-1.02)
[2018-02-28 08:20] LABS: BASOPHILS # (AUTO) 0.13 x10^3/uL (0-0.1); BASOPHILS % (AUTO) 1 % (0-1); EOSINOPHILS # (AUTO) 0.25 x10^3/uL (0-0.4); EOSINOPHILS % (AUTO) 2 % (1-7); LYMPHOCYTES # (AUTO) 5.16 x10^3/uL (1-3.4); LYMPHOCYTES % (AUTO) 43 % (22-44); MD SCAN; MONOCYTES # (AUTO) 1.04 x10^3/uL (0.2-0.8); MONOCYTES % (AUTO) 9 % (2-9); NEUTROPHILS # (AUTO) 5.45 x10^3/uL (1.8-6.8); NEUTROPHILS % (AUTO) 45 % (42-75)
[2018-02-28] MEDS: ASPIRIN 81 MG TABLET EC PO SCH (08:32)
[2018-02-28] MEDS: SENNA/DOCUSATE TABLET PO SCH (08:33)
[2018-02-28] MEDS: POTASSIUM CHLORIDE 20 MEQ in LACTATED RINGERS 1,000 ML IV SCH ×2 (08:38→22:09)
[2018-02-28 09:06] LABS: FREE T4 (FREE THYROXINE) 1.44 ng/dL (0.76-1.46); THYROID STIMULATING HORMONE 0.709 mIU/L (0.358-3.740)
[2018-03-01] MEDS: NICOTINE 7 MG/24 HR PATCH.TD24 TD SCH
[2018-03-01] MEDS: HEPARIN 5,000 UNITS/ML, 1ML SQ SCH ×2 (00:49→08:46)
[2018-03-01 01:23] VITALS: BP 122/62
[2018-03-01 06:15] LABS: CHLORIDE 111 mmol/L (98-107)
[2018-03-01 06:38] VITALS: BP 136/60
[2018-03-01 06:39] LABS: ALANINE AMINOTRANSFERASE 16 U/L (12-78); ALBUMIN 2.4 g/dL (3.4-5.0); ALKALINE PHOSPHATASE 64 U/L (45-117); ANION GAP 9 mmol/L (5-15); BILIRUBIN,TOTAL 0.2 mg/dL (0.2-1.0); CALCIUM 7.6 mg/dL (8.5-10.1); CREATININE 0.79 mg/dL (0.55-1.02); TOTAL PROTEIN 5.5 g/dL (6.4-8.2)
[2018-03-01] MEDS ORDERED: PANT20TA3 PO (06:48)
[2018-03-01] MEDS ORDERED: PANTOPRAZOLE 20MG TABLET PO SCH (07:00)
[2018-03-01] MEDS ORDERED: MAGNESIUM SULFATE PMX 2GM/50ML 50 ML IV ONE (07:00)
[2018-03-01] MEDS: INSULIN LISPRO 100 UNITS/ML, PEN SQ-INSULIN SCH ×2 (08:45→11:00)
[2018-03-01] MEDS: SENNA/DOCUSATE TABLET PO SCH (08:46)
[2018-03-01] MEDS: ASPIRIN 81 MG TABLET EC PO SCH (08:46)
[2018-03-01 12:19] VITALS: BP 126/65
== END 2018-03-01 14:00 | disposition home or self-care (01) | DRG 682 ==
LOC: ED 20:34 → EDIP 22:45 → 3NE 02-27 00:02 → DCLOUNGE 03-01 13:48
PROVIDERS: ADMIT Internal Medicine; ATTEND Internal Medicine
DX: N17.0 Acute kidney failure with tubular necrosis (principal); R65.11 Systemic inflammatory response syndrome (SIRS) of non-infectious origin with acute organ dysfunction; E87.2 Acidosis; E87.1 Hypo-osmolality and hyponatremia; M54.6 Pain in thoracic spine; E11.65 Type 2 diabetes mellitus with hyperglycemia; E78.00 Pure hypercholesterolemia, unspecified; E78.5 Hyperlipidemia, unspecified; E87.6 Hypokalemia; E87.8 Other disorders of electrolyte and fluid balance, not elsewhere classified; F17.200 Nicotine dependence, unspecified, uncomplicated; I10 Essential (primary) hypertension; I25.10 Atherosclerotic heart disease of native coronary artery without angina pectoris; I25.2 Old myocardial infarction; Z80.3 Family history of malignant neoplasm of breast; Z80.6 Family history of leukemia; Z82.49 Family history of ischemic heart disease and other diseases of the circulatory system; Z83.3 Family history of diabetes mellitus; Z85.43 Personal history of malignant neoplasm of ovary; Z86.73 Personal history of transient ischemic attack (TIA), and cerebral infarction without residual deficits; Z90.710 Acquired absence of both cervix and uterus; Z90.81 Acquired absence of spleen; I95.9 Hypotension, unspecified; Z79.82 Long term (current) use of aspirin; Z79.899 Other long term (current) drug therapy; Z91.041 Radiographic dye allergy status; Z90.49 Acquired absence of other specified parts of digestive tract
CPT/HCPCS: 36415; 71045; 71250; 74176; 76700; 78264; 80048; 80053; 80076; 81001; 82040; 82436; 82533; 82570; 82962; 83036; 83605; 83690; 83735; 84100; 84133; 84145; 84300; 84439; 84443; 84481; 85025; 85651; 86141; 87040; 93005; 96361; 96365; 96367; 96372; 96375; G0378; J0696; J1644; J2405; J2550; J3480; A9541; C9898; J3475; J7030; J7050; J7120

== ENCOUNTER 2018-06-18 15:06 | Observation (INO) | payer MEDICARE ==
[~2018-06-18] VITALS: Ht 157.5 cm; Wt 65.6 kg
[~2018-06-18 15:06] MED LIST changes: +PANT20TA3 PO; +VARI50KI IM
[2018-06-18] MEDS ORDERED: ASPIRIN 81 MG TABLET CHEW PO ONE (15:30)
[2018-06-18 15:43] LABS: MEAN CORPUSCULAR HEMOGLOBIN 30.1 pg (27.0-34.8); MEAN CORPUSCULAR HGB CONC 32.7 g/dL (32.4-35.8); PLATELET COUNT 492 x10^3/uL (130-400); RED BLOOD COUNT 4.76 x10^6/uL (3.82-5.3); RED CELL DISTRIBUTION WIDTH 14.1 % (9.6-15.2)
[2018-06-18] MEDS ORDERED: ASPIRIN 81 MG TABLET CHEW ONE (15:43)
[2018-06-18 15:47] LABS: MD YES
[2018-06-18] MEDS ORDERED: NITROGLYCERIN SINGLE TAB 0.4 MG SL ONE ×2 (15:52→16:00)
[2018-06-18 15:53] LABS: ANION GAP 9 mmol/L (5-15); CALCIUM 9.9 mg/dL (8.5-10.1); CHLORIDE 109 mmol/L (98-107); CREATININE 0.74 mg/dL (0.55-1.02)
[2018-06-18] MEDS ORDERED: LORazepam 2 MG/ML, 1ML ONE (15:53)
[2018-06-18 15:57] LABS: TROPONIN I < 0.015 ng/mL (0.000-0.045)
[2018-06-18] MEDS ORDERED: LORazepam 2 MG/ML, 1ML IVPush ONE (16:00)
[2018-06-18 16:14] LABS: EOS#(MANUAL) 0.28 x10^3/uL (0.0-0.4); EOS% (MANUAL) 2 % (1-7); LYMPH#(MANUAL) 5.56 x10^3/uL (1-3.4); LYMPHS% (MANUAL) 40 % (22-44); MONOS#(MANUAL) 0.83 x10^3/uL (0.3-2.7); MONOS% (MANUAL) 6 % (2-9); REACTIVE LYMPHS # (MANUAL) 0.14 x10^3/uL (0-0); REACTIVE LYMPHS % (MANUAL) 1 % (0-0); SEG#(MANUAL) 7.09 x10^3/uL (1.8-6.8); SEGS% (MANUAL) 51 % (42-75)
[2018-06-18 16:15] LABS: <PLATELET ESTIMATE> INCREASED; <PLT MORPHOLOGY> NORMAL PLT MORPH; <RBC MORPHOLOGY> NORMAL
--- NOTE | 2018-06-18 16:25 | NUR ---
FIRST CONTACT WITH PT. PT STATES HER CP IS 1/10 AT THIS TIME
--- NOTE | 2018-06-18 16:25 | NUR ---
PT STATES HER INITIAL CP WAS SUDDEN ONSET, FELT LIKE SOMEONE WAS TWISTING HER CHEST. NO SOB OR NAUSEA OR SWEATING WITH CP. PAIN CONTINUED UNTIL RECEIVING NITRO IN ER.
[2018-06-18] MEDS ORDERED: HEPARIN 5,000 UNITS/ML, 1ML IV ONE (17:00)
[2018-06-18] MEDS ORDERED: HEPARIN 25,000 UNITS/500ML PMX 500 ML ONE (17:00)
[2018-06-18] MEDS ORDERED: HEPARIN 5,000 UNITS/ML, 1ML ONE (17:00)
[2018-06-18] MEDS ORDERED: HEPARIN 25,000 UNITS/500ML PMX 500 ML IV PRN (17:00)
--- NOTE | 2018-06-18 17:00 | NUR ---
CONTINUES TO HAVE 1/10 CP. TALKING ON PHONE WITH FRIEND, NO DISTRESS
[2018-06-18] MEDS ORDERED: NITROGLYCERIN 0.4 MG/SPRAY SL PRN (17:30)
[2018-06-18] MEDS ORDERED: NITROGLYCERIN 0.4 MG BOTTLE (25 TABS) SL PRN (17:30)
[2018-06-18] MEDS ORDERED: D5%-0.45% NACL 1,000 ML IV SCH (17:30)
[2018-06-18] MEDS ORDERED: ASPIRIN 325 MG TABLET EC PO ONE (17:30)
[2018-06-18] MEDS ORDERED: morphine SULFATE 10 MG/ML, 1ML IV PRN (17:30)
[2018-06-18] MEDS ORDERED: morphine SULFATE 10 MG/ML, 1ML IVPush PRN (17:30)
[2018-06-18] MEDS ORDERED: BISACODYL 10 MG SUPP PR PRN (17:30)
[2018-06-18] MEDS ORDERED: ONDANSETRON 2MG/ML, 2ML IVP PRN (17:30)
[2018-06-18] MEDS ORDERED: ACETAMINOPHEN 325 MG TABLET PO PRN (17:30)
[2018-06-18 17:42] LABS: CHOL/HDL RATIO 2.1; LDL/HDL RATIO 0.7 (0.5-3.0)
--- NOTE | 2018-06-18 17:59 | NUR ---
REPORT TO JIGAR ROMEO. PT TO BE TRANSPORTED.
[2018-06-18 18:33] VITALS: BP 154/71
[2018-06-18] MEDS ORDERED: ASPIRIN 81 MG TABLET EC PO ONE (19:00)
[2018-06-18] MEDS: SODIUM CHLORIDE FLUSH 10ML SYR IVF SCH ×2 (19:34→21:49)
[2018-06-18 19:37] LABS: TROPONIN I < 0.015 ng/mL (0.000-0.045)
[2018-06-18] MEDS ORDERED: ATORVASTATIN 80 MG TABLET PO SCH (21:00)
[2018-06-18] MEDS: metFORMIN 500 MG TABLET PO SCH (21:47)
[2018-06-18] MEDS: PANTOPRAZOLE 20MG TABLET PO SCH (21:48)
[2018-06-18] MEDS: CARVEDILOL 6.25 MG TABLET PO SCH (21:48)
[2018-06-18 23:06] LABS: TROPONIN I < 0.015 ng/mL (0.000-0.045)
[2018-06-18] MEDS: HEPARIN 5,000 UNITS/ML, 1ML IV PRN (23:46)
[2018-06-19 00:20] VITALS: BP 109/68
[2018-06-19] MEDS ORDERED: PANT20TA3 PO (02:03)
[2018-06-19 05:55] LABS: MEAN CORPUSCULAR HEMOGLOBIN 30.8 pg (27.0-34.8); MEAN CORPUSCULAR HGB CONC 33.1 g/dL (32.4-35.8); MEAN CORPUSCULAR VOLUME 92.8 fL (80-100); MEAN PLATELET VOLUME 8.6 fL (7.4-10.4); PLATELET COUNT 396 x10^3/uL (130-400); RED BLOOD COUNT 4.18 x10^6/uL (3.82-5.3); RED CELL DISTRIBUTION WIDTH 13.7 % (9.6-15.2)
[2018-06-19] MEDS ORDERED: ASPIRIN 325 MG TABLET EC PO SCH (06:00)
[2018-06-19 06:07] LABS: ANION GAP 10 mmol/L (5-15); CALCIUM 9.1 mg/dL (8.5-10.1); CHLORIDE 110 mmol/L (98-107); CREATININE 0.74 mg/dL (0.55-1.02)
[2018-06-19] MEDS: HEPARIN 5,000 UNITS/ML, 1ML IV PRN (06:36)
[2018-06-19 06:59] VITALS: BP 113/68
[2018-06-19] MEDS: CARVEDILOL 6.25 MG TABLET PO SCH (07:37)
[2018-06-19] MEDS: metFORMIN 500 MG TABLET PO SCH (07:37)
[2018-06-19] MEDS: SODIUM CHLORIDE FLUSH 10ML SYR IVF SCH ×2 (07:37)
[2018-06-19] MEDS: PANTOPRAZOLE 20MG TABLET PO SCH (07:37)
[2018-06-19] MEDS ORDERED: REGADENOSON 0.4 MG/5 ML SYRINGE ONE (08:00)
[2018-06-19] MEDS ORDERED: ASPIRIN 81 MG TABLET EC PO SCH (09:00)
[2018-06-19] MEDS ORDERED: SENNOSIDES 8.6 MG TABLET PO SCH (09:00)
[2018-06-19] MEDS ORDERED: LINAGLIPTIN 5 MG TAB PO SCH (09:00)
[2018-06-19 12:35] VITALS: BP 119/69
== END 2018-06-19 15:02 | disposition home or self-care (01) ==
LOC: ED 16:13 → EDIP 16:54 → INTOOBSV 16:54 → 5SO 18:25
PROVIDERS: ADMIT Family Medicine; ATTEND Family Medicine
DX: R07.89 Other chest pain (principal); I10 Essential (primary) hypertension; E78.5 Hyperlipidemia, unspecified; E11.9 Type 2 diabetes mellitus without complications; I25.10 Atherosclerotic heart disease of native coronary artery without angina pectoris; I25.2 Old myocardial infarction; E78.00 Pure hypercholesterolemia, unspecified; F17.210 Nicotine dependence, cigarettes, uncomplicated; K21.9 Gastro-esophageal reflux disease without esophagitis; Z79.82 Long term (current) use of aspirin; Z79.84 Long term (current) use of oral hypoglycemic drugs; Z79.899 Other long term (current) drug therapy; Z85.43 Personal history of malignant neoplasm of ovary; Z86.73 Personal history of transient ischemic attack (TIA), and cerebral infarction without residual deficits; Z90.711 Acquired absence of uterus with remaining cervical stump; Z90.81 Acquired absence of spleen
CPT/HCPCS: 36415; 71045; 78452; 80048; 80061; 82040; 82962; 83735; 83880; 84484; 85025; 85027; 85520; 93005; 93017; 93306; 96365; 96366; 96375; 96376; 99284; A9502; C9898; G0378; J1644; J2060; J2785

== ENCOUNTER 2019-04-16 15:45 | Observation (INO) | payer MEDICARE ==
[~2019-04-16] VITALS: Ht 160 cm; Wt 68.2 kg
[~2019-04-16 15:45] MED LIST changes: +NITR9CAP SL; -NITR9CAP3 SL
[2019-04-16] MEDS ORDERED: DIPHENHYDRAMINE 50 MG/ML, 1ML ONE (16:14)
[2019-04-16 16:24] LABS: MEAN PLATELET VOLUME 9.1 fL (7.4-10.4); PLATELET COUNT 477 x10^3/uL (130-400); RED BLOOD COUNT 4.42 x10^6/uL (3.82-5.3); RED CELL DISTRIBUTION WIDTH 13.6 % (9.6-15.2)
[2019-04-16] MEDS ORDERED: POLYETHYLENE GLYCOL 17 GM PACKET PO PRN (16:30)
[2019-04-16] MEDS ORDERED: NICOTINE 14MG/24 HR PATCH.TD24 TD SCH (16:30)
[2019-04-16] MEDS ORDERED: DIPHENHYDRAMINE 50 MG/ML, 1ML IVPush ONE (16:30)
[2019-04-16] MEDS ORDERED: SODIUM CHLORIDE FLUSH 10ML SYR IVF ONE (16:30)
[2019-04-16] MEDS ORDERED: BISACODYL 10 MG SUPP PR PRN (16:30)
[2019-04-16] MEDS: INSULIN LISPRO 100 UNITS/ML, PEN SQ-INSULIN SCH ×2 (16:30→20:34)
[2019-04-16] MEDS ORDERED: ONDANSETRON 2MG/ML, 2ML IVPush PRN (16:30)
[2019-04-16] MEDS ORDERED: ACETAMINOPHEN 325 MG TABLET PO PRN (16:30)
[2019-04-16] MEDS ORDERED: OXYcodone IR 5MG TABLET PO PRN (16:30)
[2019-04-16] MEDS ORDERED: morphine SULFATE 10 MG/ML, 1ML IVPush PRN (16:30)
[2019-04-16 16:33] LABS: INTERNATIONAL NORMALIZED RATIO 0.9 (0.93-1.1); PROTHROMBIN TIME 9.5 Seconds (9.6-11.5)
[2019-04-16 16:36] LABS: ALBUMIN 3.8 g/dL (3.4-5.0); ANION GAP 12 mmol/L (5-15); CALCIUM 9.6 mg/dL (8.5-10.1); CHLORIDE 106 mmol/L (98-107)
[2019-04-16 16:39] LABS: MD YES
[2019-04-16 16:40] LABS: BASOS#(MANUAL) 0.18 x10^3/uL (0-0.1); BASOS% (MANUAL) 1 % (0-1); EOS#(MANUAL) 0.18 x10^3/uL (0.0-0.4); EOS% (MANUAL) 1 % (1-7); LYMPH#(MANUAL) 4.78 x10^3/uL (1-3.4); LYMPHS% (MANUAL) 27 % (22-44); MONOS#(MANUAL) 0.89 x10^3/uL (0.3-2.7); MONOS% (MANUAL) 5 % (2-9); REACTIVE LYMPHS # (MANUAL) 0.71 x10^3/uL (0-0); REACTIVE LYMPHS % (MANUAL) 4 % (0-0); SEG#(MANUAL) 10.97 x10^3/uL (1.8-6.8); SEGS% (MANUAL) 62 % (42-75)
[2019-04-16 16:41] LABS: <PLATELET ESTIMATE> INCREASED; <PLT MORPHOLOGY> NORMAL PLT MORPH; ACANTHOCYTES 1+; ANISOCYTOSIS 1+
[2019-04-16 16:42] LABS: CREATININE 0.82 mg/dL (0.55-1.02); TROPONIN I < 0.015 ng/mL (0.000-0.045)
[2019-04-16] MEDS ORDERED: OMNIPAQUE 350 MG/ML, 100ML BOTTLE ONE ×2 (16:48→17:01)
--- NOTE | 2019-04-16 17:02 | NUR ---
SISTER,CAROLINA'S PHONE NUMBER IS .
--- NOTE | 2019-04-16 17:17 | NUR ---
AMBULATED PATIENT TO THE BATHROOM TO VOID. PT A STANDBY/MINIMAL ASSIST.
[2019-04-16] MEDS ORDERED: METF1000 PO (17:19)
[2019-04-16] MEDS ORDERED: GABA100C PO (17:20)
[2019-04-16] MEDS ORDERED: LISI-170 PO (17:21)
[2019-04-16] MEDS ORDERED: KETO15CR17 TP (17:23)
--- NOTE | 2019-04-16 17:24 | NUR ---
MED REC COMPLETED.
[2019-04-16] MEDS: SODIUM CHLORIDE 0.9% 1,000 ML IV SCH (17:28)
--- NOTE | 2019-04-16 17:48 | NUR ---
PT MOVED TO ROOM 27. SBAR HAND-OFF REPORT TO AGUEDA JO. PT RESTING WITH NO COMPLAINTS.
--- NOTE | 2019-04-16 17:50 | NUR ---
PT TO MRI.
[2019-04-16] MEDS ORDERED: ATORVASTATIN 80 MG TABLET PO SCH (21:00)
[2019-04-16 22:21] VITALS: BP 162/75
[2019-04-17 01:02] VITALS: BP 150/76
[2019-04-17] MEDS: SODIUM CHLORIDE 0.9% 1,000 ML IV SCH (04:09)
[2019-04-17 06:24] LABS: BASOPHILS # (AUTO) 0.12 x10^3/uL (0-0.1); BASOPHILS % (AUTO) 1 % (0-1); EOSINOPHILS # (AUTO) 0.41 x10^3/uL (0-0.4); EOSINOPHILS % (AUTO) 3 % (1-7); LYMPHOCYTES # (AUTO) 4.83 x10^3/uL (1-3.4); LYMPHOCYTES % (AUTO) 38 % (22-44); MD NO; MEAN CORPUSCULAR HEMOGLOBIN 30.6 pg (27.0-34.8); MEAN CORPUSCULAR HGB CONC 32.6 g/dL (32.4-35.8); MEAN PLATELET VOLUME 9.1 fL (7.4-10.4); MONOCYTES # (AUTO) 0.94 x10^3/uL (0.2-0.8); MONOCYTES % (AUTO) 8 % (2-9); NEUTROPHILS % (AUTO) 50 % (42-75); PLATELET COUNT 388 x10^3/uL (130-400); RED BLOOD COUNT 3.87 x10^6/uL (3.82-5.3); RED CELL DISTRIBUTION WIDTH 13.9 % (9.6-15.2)
[2019-04-17 06:34] LABS: ALBUMIN 3.1 g/dL (3.4-5.0); ANION GAP 7 mmol/L (5-15); CALCIUM 8.5 mg/dL (8.5-10.1); CHLORIDE 112 mmol/L (98-107)
[2019-04-17 06:38] LABS: ALANINE AMINOTRANSFERASE 27 U/L (12-78); ALKALINE PHOSPHATASE 74 U/L (45-117); BILIRUBIN,TOTAL 0.6 mg/dL (0.2-1.0); CHOL/HDL RATIO 2.5; CHOLESTEROL, TOTAL 157 mg/dL (140-239); CREATININE 0.64 mg/dL (0.55-1.02); HDL CHOL % 39 % (28-40); HDL CHOLESTEROL (DIRECT) 62 mg/dL (40-60); LDL CHOLESTEROL,CALCULATED 77 mg/dL (54-169); LDL/HDL RATIO 1.2 (0.5-3.0); TOTAL PROTEIN 6.5 g/dL (6.4-8.2); TRIGLYCERIDES 91 mg/dL (50-200); VLDL CHOLESTEROL 18 mg/dL (0-25)
[2019-04-17] MEDS: INSULIN LISPRO 100 UNITS/ML, PEN SQ-INSULIN SCH ×2 (07:00→11:00)
[2019-04-17 07:11] VITALS: BP 129/71
[2019-04-17] MEDS ORDERED: PANTOPROZOLE 40MG TABLET PO SCH (07:30)
[2019-04-17] MEDS ORDERED: SENNA/DOCUSATE TABLET PO SCH (09:00)
[2019-04-17 12:20] VITALS: BP 139/79
== END 2019-04-17 13:35 | disposition home or self-care (01) ==
LOC: ED 16:11 → INTOOBSV 16:12 → EDIP 16:12 → ED 16:53 → 4EST 19:10 → DCLOUNGE 04-17 13:25
PROVIDERS: ADMIT Internal Medicine; ATTEND Internal Medicine
DX: I63.9 Cerebral infarction, unspecified (principal); D72.829 Elevated white blood cell count, unspecified; D47.3 Essential (hemorrhagic) thrombocythemia; D44.6 Neoplasm of uncertain behavior of carotid body; I38 Endocarditis, valve unspecified; E11.9 Type 2 diabetes mellitus without complications; E78.5 Hyperlipidemia, unspecified; I10 Essential (primary) hypertension; K21.9 Gastro-esophageal reflux disease without esophagitis; I25.10 Atherosclerotic heart disease of native coronary artery without angina pectoris; F17.210 Nicotine dependence, cigarettes, uncomplicated; I25.2 Old myocardial infarction; Z86.73 Personal history of transient ischemic attack (TIA), and cerebral infarction without residual deficits; Z79.82 Long term (current) use of aspirin; Z79.899 Other long term (current) drug therapy; Z91.040 Latex allergy status; Z90.710 Acquired absence of both cervix and uterus; Z85.43 Personal history of malignant neoplasm of ovary
CPT/HCPCS: 36415; 70450; 70496; 70498; 70551; 71045; 80048; 80053; 80061; 82040; 82330; 82565; 82803; 82947; 82962; 84132; 84295; 84484; 85014; 85025; 85610; 92610; 93005; 96374; 99291; G0378; J1200; J7030; Q9967

== ENCOUNTER → 2019-10-29 | Outpatient (CLI) | payer MEDICARE ==
[~2019-10-29] MED LIST changes: +GABA100C PO; +KETO15CR17 TP; +LISI-170 PO; +METF1000 PO; -NITR9CAP SL; +NITR9CAP10 SL; -PANT20TA3 PO; +PANT20TA4 PO; +SENN-190 PO; -SENN-88 PO
== END | disposition home or self-care (01) ==
LOC: STAR 09:19
PROVIDERS: ATTEND Anesthesiology
DX: Z01.812 Encounter for preprocedural laboratory examination (principal); Z20.828 Contact with and (suspected) exposure to other viral communicable diseases
CPT/HCPCS: 36415; 87635

== ENCOUNTER → 2019-12-03 | Outpatient (CLI) | payer MEDICARE | END | disposition home or self-care (01) | LOC: STAR 12:00 | PROVIDERS: ATTEND Anesthesiology | DX: Z01.812 Encounter for preprocedural laboratory examination (principal); Z20.828 Contact with and (suspected) exposure to other viral communicable diseases | CPT/HCPCS: 36415; 87635 ==

== ENCOUNTER 2019-12-06 11:10 | Inpatient (IN) | payer MEDICARE ==
[~2019-12-06] VITALS: Ht 157.5 cm; Wt 73.3 kg
[2019-12-06 11:56] VITALS: BP 146/75
[2019-12-06] MEDS ORDERED: LACTATED RINGERS 1,000 ML IV SCH ×2 (12:00→20:00)
[2019-12-06] MEDS ORDERED: CHLORHEXIDINE 15 ML UDC MM ONE (12:00)
[2019-12-06 12:31] LABS: ALBUMIN 3.5 g/dL (3.4-5.0); ANION GAP 6 mmol/L (5-15); CHLORIDE 111 mmol/L (98-107)
[2019-12-06 12:35] LABS: ALANINE AMINOTRANSFERASE 17 U/L (12-78); ALKALINE PHOSPHATASE 71 U/L (45-117); BILIRUBIN,TOTAL 0.5 mg/dL (0.2-1.0); CREATININE 0.76 mg/dL (0.55-1.02); TOTAL PROTEIN 7.3 g/dL (6.4-8.2)
[2019-12-06] MEDS ORDERED: EPINEPHRINE 1 MG/ML, 1ML ONE (13:04)
[2019-12-06] MEDS ORDERED: LIDOCAINE/PF 1%, 30ML ONE (13:04)
[2019-12-06] MEDS ORDERED: FENTANYL PF 250 MCG/5ML ONE (13:17)
[2019-12-06] MEDS ORDERED: LIDOCAINE 1%, 20ML ONE (14:19)
[2019-12-06] MEDS ORDERED: FENTANYL PF 100 MCG/2ML IV PRN (14:30)
[2019-12-06] MEDS ORDERED: HYDROmorphone 1 MG/ML, 1ML INJ IVPush PRN (14:30)
[2019-12-06] MEDS ORDERED: PROMETHAZINE 25 MG/ML, 1ML IVPush PRN (14:30)
[2019-12-06] MEDS ORDERED: hydrALAzine 20 MG/ML, 1ML IV PRN (14:30)
[2019-12-06] MEDS ORDERED: PROMETHAZINE 25 MG SUPP PR PRN (14:30)
[2019-12-06] MEDS ORDERED: ENALAPRILAT 1.25 MG/ML, 2ML IV PRN (14:30)
[2019-12-06] MEDS ORDERED: ACETAMINOPHEN 325 MG TABLET PO PRN (14:30)
[2019-12-06] MEDS ORDERED: OXYcodone 5 MG/5 ML ORAL.SOL UDC PO PRN (14:30)
[2019-12-06] MEDS ORDERED: ONDANSETRON 2MG/ML, 2ML IVPush PRN ×2 (14:30→20:00)
[2019-12-06] MEDS ORDERED: PROPOFOL 10 MG/ML, 20ML ONE (16:39)
[2019-12-06] MEDS ORDERED: ONDANSETRON 2MG/ML, 2ML ONE (16:39)
[2019-12-06] MEDS ORDERED: GLYCOPYRROLATE 0.2MG/1ML, 5ML ONE (16:39)
[2019-12-06] MEDS ORDERED: DEXAMETHASONE 4 MG/ML, 1ML ONE (16:39)
[2019-12-06] MEDS ORDERED: ROCURONIUM 10MG/ML,5ML ONE (16:39)
[2019-12-06] MEDS ORDERED: NEOSTIGMINE 1 MG/ML, 10ML ONE (16:39)
[2019-12-06] MEDS ORDERED: CEFAZOLIN 1,000 MG ONE (16:39)
[2019-12-06] MEDS ORDERED: SUCCINYLCHOLINE 20 MG/ML, 10ML ONE (16:39)
[2019-12-06] MEDS ORDERED: SUGAMMADEX 200 MG/2 ML IVPush ONE (16:39)
[2019-12-06] MEDS ORDERED: LABETALOL 5MG/ML, 20ML ONE (17:08)
[2019-12-06] MEDS: LABETALOL 5MG/ML, 20ML IV PRN ×4 (17:12→18:00)
[2019-12-06] MEDS ORDERED: METOPROLOL 1 MG/ML, 5ML ONE (18:13)
[2019-12-06] MEDS: METOPROLOL 1 MG/ML, 5ML IV PRN ×4 (18:14→19:02)
[2019-12-06 20:00] VITALS: BP 135/61
[2019-12-06] MEDS ORDERED: OXYcodone/APAP 5/325MG TABLET PO PRN (20:00)
[2019-12-06] MEDS ORDERED: MORPHINE SULFATE 4 MG/ML, 1ML IVPush PRN (20:00)
[2019-12-06] MEDS ORDERED: ATORVASTATIN 80 MG TABLET PO SCH (21:00)
[2019-12-06] MEDS ORDERED: GABAPENTIN 100 MG CAPSULE PO PRN (21:00)
[2019-12-07] VITALS: BP 144/92
[2019-12-07 03:38] VITALS: BP 123/63
[2019-12-07] MEDS ORDERED: CARVEDILOL 6.25 MG TABLET PO SCH (06:00)
[2019-12-07] MEDS ORDERED: PANTOPRAZOLE 20MG TABLET PO SCH (06:00)
[2019-12-07 07:02] VITALS: BP 143/71
[2019-12-07] MEDS ORDERED: metFORMIN 500 MG TABLET PO SCH (08:00)
[2019-12-07] MEDS ORDERED: LISINOPRIL 20 MG TABLET PO SCH (09:00)
[2019-12-07 11:11] VITALS: BP 124/71
[2019-12-07] MEDS ORDERED: LACTATED RINGERS 1,000 ML IV SCH (20:00)
== END 2019-12-07 11:26 | disposition home or self-care (01) | DRG 983 ==
LOC: OBSVTOIN 11:10 → ORIP 11:10 → INTOOBSV 11:10 → EDSTATUS 13:00 → 4NE 19:20
PROVIDERS: ADMIT Otolaryngology; ATTEND Otolaryngology
PROC: 0GB70ZZ Excision of Right Carotid Body, Open Approach (ICD-10-PCS; principal; 2019-12-06 13:00)
DX: D44.6 Neoplasm of uncertain behavior of carotid body (principal); I10 Essential (primary) hypertension; K21.9 Gastro-esophageal reflux disease without esophagitis
CPT/HCPCS: 80053; 82962; 88305; 88341; 88342; 93005; 96360; 96361; G0378; J0171; J0690; J1100; J2405; J2704; J2710; J3010; C1760; J0330; J7120

== ENCOUNTER → 2020-11-11 | Outpatient (CLI) | payer MEDICARE, OTHER ==
[~2020-11-11] VITALS: Ht 157.5 cm; Wt 72.2 kg
[~2020-11-11] MED LIST changes: +ACETAMINOPHEN 500 MG TABLET ONE; +ACETAMINOPHEN 500 MG TABLET PO ONE; +CEFOTETAN 2 GM ONE; +CHLORHEXIDINE 15 ML UDC PO ONE; +DEXAMETHASONE 4 MG/ML, 1ML ONE; +FENTANYL PF 250 MCG/5ML ONE; +LACTATED RINGERS 1,000 ML IV SCH; +MIDAZOLAM 1 MG/ML, 2ML ONE; +PLEASE ENTER HEIGHT AND WEIGHT MC SCH; +ROPIvacaine/PF 0.2%, 20 ML ONE
[2020-11-11 11:46] VITALS: BP 155/79
[2020-11-11 11:58] LABS: BASOPHILS % (AUTO) 2 % (0-1); EOSINOPHILS % (AUTO) 3 % (1-7); LYMPHOCYTES % (AUTO) 30 % (22-44); MEAN CORPUSCULAR HEMOGLOBIN 28.5 pg (27.0-34.8); MEAN CORPUSCULAR HGB CONC 32.4 g/dL (32.4-35.8); MEAN PLATELET VOLUME 9.2 fL (7.4-10.4); MONOCYTES % (AUTO) 8 % (2-9); NEUTROPHILS % (AUTO) 57 % (42-75); PLATELET COUNT 488 x10^3/uL (130-400); RED BLOOD COUNT 3.77 x10^6/uL (3.82-5.3); RED CELL DISTRIBUTION WIDTH 16.3 % (9.6-15.2)
[2020-11-11 11:59] VITALS: BP 155/79
[2020-11-11 12:05] LABS: INTERNATIONAL NORMALIZED RATIO 0.96 (0.93-1.1); PROTHROMBIN TIME 10.3 Seconds (9.6-11.5)
[2020-11-11 12:07] LABS: ALANINE AMINOTRANSFERASE 20 U/L (12-78); ALBUMIN 3.4 g/dL (3.4-5.0); ANION GAP 8 mmol/L (5-15); CALCIUM 8.8 mg/dL (8.5-10.1); CHLORIDE 110 mmol/L (98-107); CREATININE 0.78 mg/dL (0.55-1.02)
[2020-11-11 12:09] LABS: ALKALINE PHOSPHATASE 70 U/L (45-117); BILIRUBIN,TOTAL 0.6 mg/dL (0.2-1.0); TOTAL PROTEIN 7.2 g/dL (6.4-8.2)
== END | disposition home or self-care (01) ==
LOC: STAR 08:00 → UNDOADMIN 10:44 → ORIP 10:44 → EDSTATUS 12:15
PROVIDERS: ATTEND Surgery
DX: Z01.812 Encounter for preprocedural laboratory examination (principal); Z20.822 Contact with and (suspected) exposure to COVID-19; D12.6 Benign neoplasm of colon, unspecified
CPT/HCPCS: 36415; 80053; 82962; 85025; 85610; 87635; 93005; J1100; J2250; J2795; J3010